=== PATIENT | female | born 1935 | race Caucasian/White ===

== ENCOUNTER → 2017-01-29 | Outpatient (CLI) | payer MEDICARE, OTHER ==
--- NOTE | 2017-01-29 15:55 | RAD ---
Bone densitometry scan, 01/29/2017: History: Ovarian failure, osteoporosis screening The lumbar spine and right hip were examined utilizing the DEXA technique. The bone mineral density in the lumbar spine as measured from the L1-L4 levels is 1.14 g/sq cm. This yields a T score of -0.3 which is in the normal range. Hypertrophic degenerative change in the lower lumbar spine may be elevating this measurement. The T score in the upper lumbar spine at the L1-2 levels is -1.3 suggesting mild osteopenia. The total T score at the right hip is -1.0 which is at the lower limits of normal. IMPRESSION: Borderline osteopenia as described above.
== END | disposition home or self-care (01) ==
LOC: DXRAD 12:52
PROVIDERS: ATTEND Obstetrics & Gynecology
DX: Z13.820 Encounter for screening for osteoporosis (principal); Z78.0 Asymptomatic menopausal state; Z87.891 Personal history of nicotine dependence
CPT/HCPCS: 77080